=== PATIENT | male | born 1990 | race Hispanic/Latino ===

== ENCOUNTER 2018-07-15 05:15 | Emergency (ER) | payer BC, OTHER ==
[~2018-07-15] VITALS: Ht 172.7 cm; Wt 81.6 kg
[~2018-07-15 05:15] MED LIST: CONCERTA54 M1 PO; ZOFRAN ODT4 MG PO
[2018-07-15] MEDS ORDERED: SODIUM CHLORIDE 0.9% 1000ML 1,000 ML IV STA (05:35)
[2018-07-15] MEDS ORDERED: ONDANSETRON HCL INJ 2 MG/ML VIAL IV ONE (05:45)
[2018-07-15] MEDS ORDERED: FAMOTIDINE 20 MG/2 ML VIAL IV ONE (05:45)
[2018-07-15] MEDS ORDERED: DICYCLOMINE HCL 20 MG/2 ML VIAL IM ONE (05:45)
[2018-07-15] MEDS ORDERED: DICYCLOMINE HCL 20 MG TAB PO ONE (06:00)
--- NOTE | 2018-07-15 06:26 | Diagnostic Imaging Report ---
ABDOMEN-2VIEW Clinical history: Upper abdominal pain Technique: AP view abdomen, supine and upright Comparison: None Findings: No differentially dilated loops of small bowel to suggest obstruction. Multiple air-fluid levels are seen on upright view. Suggestion of bowel wall thickening. No free air. Impression: Findings which can be seen with enteritis/enterocolitis. Signed by: Dr Sharlene Negro MD on 07/15/2018 6:23 AM
[2018-07-15 06:38] LABS: BASOPHILS % 0.4 % (0.0-1.0); EOSINOPHILS # (AUTO) 0.2 (0.0-0.4); EOSINOPHILS % 1.6 % (0.0-6.0); HEMATOCRIT 41.2 % (38.2-49.6); HEMOGLOBIN 14.1 g/dL (14.0-18.0); LYMPHOCYTES # (AUTO) 2.6 (1.0-3.2); LYMPHOCYTES % 27.9 % (18.0-39.1); MEAN CORPUSCULAR HEMOGLOBIN 31.1 pg (28-32); MEAN CORPUSCULAR HGB CONC 34.2 g/dL (31-35); MEAN CORPUSCULAR VOLUME 90.7 fL (81-99); MONOCYTES # (AUTO) 0.8 (0.2-0.8); MONOCYTES % 8.2 % (4.4-11.3); NEUTROPHILS # (AUTO) 5.6 (2.1-6.9); NEUTROPHILS % 61.5 % (38.7-80.0); PLATELET COUNT 278 x10e3/uL (140-360); RED BLOOD COUNT 4.54 x10e6/uL (4.3-5.7); RED CELL DISTRIBUTION WIDTH 12.9 % (11.7-14.4)
[2018-07-15 06:48] LABS: AMYLASE 67 U/L (25-125); LIPASE 28 U/L (8-78)
== END 2018-07-15 07:53 | disposition home or self-care (01) ==
LOC: FSED 05:15
DX: R11.2 Nausea with vomiting, unspecified (principal); R19.7 Diarrhea, unspecified; R10.84 Generalized abdominal pain; K52.9 Noninfective gastroenteritis and colitis, unspecified; Z87.891 Personal history of nicotine dependence
CPT/HCPCS: 36415; 74019; 80053; 82150; 83690; 85025; 99284; J0500; J2405; J7030